=== PATIENT | female | born 1975 | race African-American/Black ===

== ENCOUNTER 2016-07-03 15:13 | Outpatient (CLI) | payer OTHER | END 2016-07-03 15:14 | disposition home or self-care (01) | LOC: HPCALD 15:13 | PROVIDERS: ATTEND Physician Assistant | DX: Z01.419 Encounter for gynecological examination (general) (routine) without abnormal findings (principal) | CPT/HCPCS: 87480; 87491; 87510; 87591; 87660; 88142; G0123 ==

== ENCOUNTER 2018-12-06 02:29 | Emergency (ER) | payer OTHER ==
[2018-12-06] MEDS ORDERED: Ketorolac Tromethamine 60 MG/2 ML VIAL ONE (02:46)
[2018-12-06 02:47] LABS: Bilirubin Negative (Negative); Blood, Urine Negative (Negative); Clarity Hazy (Clear); Glucose, Urine (Dipstick) Negative (Negative); Leukocyte Trace (Negative); Nitrite Negative (Negative); Protein, Urine (Dipstick) Negative (Neg-Trace); Specific Gravity, Urine 1.025 (1.005-1.030); Urobilinogen 0.2 mg/dL (0.2-1.0); pH, Urine 5.5 (5.0-9.0)
[2018-12-06 02:55] LABS: Bacteria/HPF Rare-Few HPF (None Seen); RBC/HPF 0-3 HPF (0-3); Squamous Epithelial 0-3 HPF (0-3); Transitional Epithelial 0-3 HPF (0-3)
[2018-12-06 03:05] LABS: Pregnancy Test - Urine (BHCG) Negative (Negative); Pregu Control Background? CLEAR/WHITE (CLR/WHITE); Pregu Control Bar Appear? YES (CONTROL BAR); Specific Gravity 1.023 (1.002-1.036)
[2018-12-06 03:13] LABS: #Basophils 0.1 thou/uL (0.0-0.2); #Eosinphils 0.3 thou/uL (0.0-0.7); #Lymphocytes 3.1 thou/uL (1.20-3.40); #Monocytes 0.6 thou/uL (0.11-0.59); %Basophils 0.9 % (0.0-1.0); %Eosinophils 3.6 % (0.0-10.0); %Monocytes 8.6 % (0.0-10.0); %Neutrophils 42.9 % (42.0-75.0); Hemoglobin 12.2 g/dL (12.0-16.0); Mean Corpuscular HGB CONC 32.4 g/dL (32.0-36.0); Mean Corpuscular Hemoglobin 27.8 pg (27.0-31.0); Mean Corpuscular Volume 85.6 fL (78.0-98.0); Mean Platelet Volume 7.1 fL (7.4-10.4); Platelet Count 274 thou/uL (130-400); RBC Distribution Width 12.6 % (11.5-14.5); Red Blood Cell (RBC) Count 4.38 mill/uL (4.20-5.40)
[2018-12-06 03:24] LABS: ALT (SGPT) 8 U/L (8-55); AST (SGOT) 14 U/L (5-34); Albumin 3.8 g/dL (3.5-5.0); Alkaline Phosphatase 62 U/L (40-150); Anion Gap 12 mmol/L (10-20); BUN (Urea Nitrogen) 9 mg/dL (7.0-18.7); Bilirubin, Total 0.3 mg/dL (0.2-1.2); Calc. Creatinine Clearance 0 mL/min (70-130); Calcium 9.3 mg/dL (7.8-10.44); Carbon Dioxide 23 mmol/L (22-29); Chloride 106 mmol/L (98-107); Estimated GFR-MDRD Greater than 90; Globulin 3.8 g/dL (2.4-3.5); Glucose 99 mg/dL (70-105); Potassium 3.9 mmol/L (3.5-5.1); Protein, Total 7.6 g/dL (6.0-8.3); Sodium 137 mmol/L (136-145)
--- NOTE | 2018-12-06 08:03 | CT ---
PRELIMINARY REPORT/[facility]/EMERGENCY AFTER HOURS PROCEDURE: EXAM: CT Abdomen and Pelvis With Contrast EXAM DATE/TIME: 12/06/2018 3:02 AM CLINICAL HISTORY: 43 years old, female; Abdominal pain; Right; Patient HX: PT stated started having RT flank pain and r lq abd pain that started yesterday evening. TECHNIQUE: Imaging protocol: Axial computed tomography images of the abdomen and pelvis with intravenous contras t. Coronal and sagittal reformatted images were created and reviewed. Radiation optimization: All CT scans at this facility use at least one of these dose optimization kenzie hniques: automated exposure control; mA and/or kV adjustment per patient size (includes targeted exam s where dose is matched to clinical indication); or iterative reconstruction. Contrast material: ISOVUE 370; Contrast volume: 100 ml; Contrast route: RT AC; COMPARISON: No relevant prior studies available. FINDINGS: Lungs: No consolidations in the lung bases. Liver: No liver masses. Gallbladder and bile ducts: Normal appearance of the gallbladder. No ductal dilation. Pancreas: No pancreatic mass or ductal dilation. Spleen: No splenic masses. Adrenals: No adrenal nodules. Kidneys and ureters: No enhancing mass or hydronephrosis. Stomach and bowel: No evidence of obstruction or bowel wall thickening. Appendix: Normal appendix. Intraperitoneal space: No free air or free fluid. Vasculature: Normal vasculature. Lymph nodes: No lymphadenopathy. Bladder: The bladder is mostly collapsed. Reproductive: Normal appearance of the uterus and adnexa. The uterus is retroverted. Bones/joints: No suspicious bone lesions. Soft tissues: No acute findings. IMPRESSION: 1. No acute findings in the abdomen or pelvis. 2. No evidence of acute appendicitis. Thank you for allowing us to participate in the care of your patient. Dictated and Authenticated by: Mary Grace Martines MD 12/06/2018 4:11 AM Central Time ([place] & [place]) FINAL REPORT CT ABDOMEN AND PELVIS WITH CONTRAST: DATE: 12/06/2018. FINDINGS: Spiral CT of the abdomen and pelvis was done for evaluation of right lower quadrant pain. Axial slic es were acquired followed by coronal and sagittal reconstructions. Comparison was made with the prio r exam dated 06/10/2010. The lung bases are clear. The liver, spleen, pancreas, adrenal glands, gallbladder, kidneys, and abd ominal aorta all appear normal. No acute disease was appreciated. The bowel shows no distention, inflammatory change, or wall thickening. The appendix was identified and appears normal. No free air or free fluid was present. There is no excessive mesenteric adenopa thy. CT of the pelvis was remarkable only for a 2.5 cm cyst in the right adnexal region. There is no subs tantial free fluid. No other pathology was seen in the pelvis. IMPRESSION: 1. A 2.5 cm right ovarian cyst. 2. No evidence of appendicitis or other acute abdominal or pelvic process. Report in agreement with preliminary reading by [facility]. POS: HOME
[2018-12-06] MEDS ORDERED: Iopamidol 370 76% 125 ML VIAL FS ONE (09:00)
== END 2018-12-06 04:28 | disposition home or self-care (01) ==
LOC: BURERS 02:29
DX: R10.9 Unspecified abdominal pain (principal); R10.813 Right lower quadrant abdominal tenderness; Z86.711 Personal history of pulmonary embolism
CPT/HCPCS: 74177; 80053; 81003; 81015; 81025; 85025; 96372; J1885; Q9967

== ENCOUNTER 2019-04-05 05:59 | Emergency (ER) | payer OTHER ==
[2019-04-05] MEDS ORDERED: Aspirin Chewable 81 MG TAB ONE (06:14)
[2019-04-05 06:25] LABS: #Basophils 0.1 thou/uL (0.0-0.2); #Eosinphils 0.1 thou/uL (0.0-0.7); #Lymphocytes 1.9 thou/uL (1.20-3.40); #Monocytes 0.4 thou/uL (0.11-0.59); #Neutrophils 2.6 thou/uL (1.40-6.50); %Basophils 1.7 % (0.0-1.0); %Eosinophils 2.7 % (0.0-10.0); %Lymphocytes 37.4 % (21.0-51.0); %Monocytes 7.4 % (0.0-10.0); %Neutrophils 50.9 % (42.0-75.0); Hemoglobin 11.6 g/dL (12.0-16.0); Mean Corpuscular HGB CONC 32.4 g/dL (32.0-36.0); Mean Corpuscular Hemoglobin 26.9 pg (27.0-31.0); Mean Corpuscular Volume 83.1 fL (78.0-98.0); Mean Platelet Volume 6.9 fL (7.4-10.4); Platelet Count 280 thou/uL (130-400); Red Blood Cell (RBC) Count 4.31 mill/uL (4.20-5.40); White Blood Cell (WBC) Count 5.2 thou/uL (4.8-10.8)
[2019-04-05 06:37] LABS: ALT (SGPT) Less than 7 U/L (8-55); AST (SGOT) 16 U/L (5-34); Albumin 3.6 g/dL (3.5-5.0); Alkaline Phosphatase 60 U/L (40-110); Anion Gap 14 mmol/L (10-20); BUN (Urea Nitrogen) 5 mg/dL (7.0-18.7); Bilirubin, Total 0.3 mg/dL (0.2-1.2); CK (CPK) 92 U/L (29-168); Calc. Creatinine Clearance 0 mL/min (70-130); Calcium 9.1 mg/dL (7.8-10.44); Carbon Dioxide 21 mmol/L (22-29); Chloride 109 mmol/L (98-107); Estimated GFR-MDRD Greater than 90; Globulin 3.7 g/dL (2.4-3.5); Glucose 102 mg/dL (70-105); Potassium 4.3 mmol/L (3.5-5.1); Protein, Total 7.3 g/dL (6.0-8.3); Sodium 140 mmol/L (136-145)
[2019-04-05] MEDS ORDERED: Ketorolac Tromethamine 30 MG/ML VIAL ONE (06:59)
[2019-04-05 07:05] LABS: BHCG - Serum Negative (NEGATIVE); Pregs Control Background? CLEAR/WHITE (CLR/WHITE); Pregs Control Bar Appear? YES (CONTROL BAR)
--- NOTE | 2019-04-05 07:17 | RAD ---
PORTABLE CHEST: Date: 04/05/19 An AP portable film at 0608 hours is presented and is compared with a 01/02/15 study. The heart size is stable. There is no congestion or edema. No pleural effusions are seen. The lungs a re clear. IMPRESSION: Stable exam showing no acute findings. POS: HOME
[2019-04-05] MEDS ORDERED: Iopamidol 370 76% 100 ML VIAL ONE (14:44)
--- NOTE | 2019-04-05 18:03 | CT ---
CT ANGIO OF THE CHEST: 04/05/19 The study was compared against a prior CT of 01/02/15. Axial slices were acquired after a bolus of IV contrast followed by MIP reconstructions in various planes through the pulmonary arteries. There is good opacification of the pulmonary arteries with no filling defects to suggest emboli. The aorta showed no sign of aneurysm or dissection. The heart is mildly enlarged. No pericardial fluid wa s appreciated. It is difficult to see the coronary arteries well but they do appear to fill with cont rast. No mediastinal mass or adenopathy was seen. The lungs are clear. There is some minor pleural scarring in the right apical region. There are no effusions. No pulmonary masses of concern were detected. Scans into the upper abdomen showed a somewhat generous hepatic size. The spleen is normal in size. T he visible portions of the pancreas were unremarkable. No adrenal masses were seen. IMPRESSION: No evidence of pulmonary embolism or acute thoracic findings to explain chest pain. Findings called to Dr. Sanchez at 0740 on 04/05/19. POS: HOME
== END 2019-04-05 07:52 | disposition home or self-care (01) ==
LOC: BURERS 05:59
DX: R07.89 Other chest pain (principal); Z86.711 Personal history of pulmonary embolism
CPT/HCPCS: 71045; 71275; 80053; 82550; 84484; 84703; 85025; 85379; 93005; 96374; J1885; Q9967

== ENCOUNTER 2020-02-19 10:44 | Emergency (ER) | payer OTHER ==
[2020-02-19] MEDS ORDERED: Lidocaine 1% w/Epinephrine 1:100K 20 ML VIAL ONE (10:56)
[2020-02-19] MEDS ORDERED: Sulfameth/Trimethoprim DS 800-160mg TAB ONE (11:22)
[2020-02-19] MEDS ORDERED: Adacel (T-DAP) 0.5 ML SYRINGE ONE (11:22)
== END 2020-02-19 11:29 | disposition home or self-care (01) ==
LOC: BURERS 10:44
DX: S71.111A Laceration without foreign body, right thigh, initial encounter (principal); Z23 Encounter for immunization; W55.32XA Struck by other hoof stock, initial encounter
CPT/HCPCS: 12001; 90471; 90715

== ENCOUNTER 2020-07-22 21:47 | Emergency (ER) | payer OTHER ==
[2020-07-22] MEDS ORDERED: Benzonatate 100 MG CAP ONE (22:33)
--- NOTE | 2020-07-23 07:52 | RAD ---
PORTABLE CHEST: DATE: 07/22/2020. FINDINGS: An AP portable film at 2243 is compared with a 04/05/2019 study. Mild cardiomegaly is present. There is no congestion of the vessels or large pleural effusions. No definite focal infiltrates were detected. The bony structures were unremarkable. IMPRESSION: Mild cardiomegaly, but no definite pulmonary findings. POS: HOME
== END 2020-07-23 | disposition home or self-care (01) ==
LOC: BURERS 21:47
DX: J02.9 Acute pharyngitis, unspecified (principal)
CPT/HCPCS: 71045; 87081; 87430; 87804; J7620

== ENCOUNTER 2021-10-31 05:42 | Emergency (ER) | payer OTHER ==
[2021-10-31] MEDS ORDERED: Bupivacaine 0.5% 10 ML VIAL ONE (06:18)
[2021-10-31] MEDS ORDERED: traMADol HCl 50 MG TAB ONE (06:32)
== END 2021-10-31 06:40 | disposition home or self-care (01) ==
LOC: BURERS 05:42
DX: M62.830 Muscle spasm of back (principal)
CPT/HCPCS: 20552; J3490

== ENCOUNTER 2021-12-31 08:16 | Emergency (ER) | payer OTHER ==
[2021-12-31] MEDS ORDERED: Ketorolac Tromethamine 30 MG/ML VIAL ONE (08:37)
== END 2021-12-31 08:47 | disposition home or self-care (01) ==
LOC: BURERS 08:16
DX: G62.9 Polyneuropathy, unspecified (principal); M62.838 Other muscle spasm
CPT/HCPCS: J1885

== ENCOUNTER 2022-01-20 14:11 | Emergency (ER) | payer OTHER | END 2022-01-20 15:07 | disposition home or self-care (01) | LOC: BURERS 14:11 | DX: S93.401A Sprain of unspecified ligament of right ankle, initial encounter (principal); X50.1XXA Overexertion from prolonged static or awkward postures, initial encounter ==

== ENCOUNTER 2022-07-10 17:04 | Emergency (ER) | payer OTHER ==
[2022-07-10] MEDS ORDERED: Ketorolac Tromethamine 30 MG/ML VIAL ONE (17:17)
[2022-07-10 17:23] LABS: #Basophils 0.1 thou/uL (0.0-0.2); #Eosinphils 0.1 thou/uL (0.0-0.7); #Monocytes 0.5 thou/uL (0.11-0.59); %Basophils 1.2 % (0.0-1.0); %Eosinophils 1.6 % (0.0-10.0); %Lymphocytes 44.4 % (21.0-51.0); %Neutrophils 44.8 % (42.0-75.0); Hemoglobin 12.5 g/dL (12.0-16.0); Mean Corpuscular HGB CONC 31.7 g/dL (32.0-36.0); Mean Corpuscular Hemoglobin 26.3 pg (27.0-31.0); Mean Corpuscular Volume 83.1 fl (78.0-98.0); Mean Platelet Volume 7.4 fL (7.4-10.4); Platelet Count 339 10x3/uL (130-400); RBC Distribution Width 15.2 % (11.5-14.5); Red Blood Cell (RBC) Count 4.74 mill/uL (4.20-5.40); White Blood Cell (WBC) Count 6.7 10x3/uL (4.8-10.8)
[2022-07-10 17:26] LABS: Bilirubin Negative (Negative); Blood, Urine Negative (Negative); Clarity Cloudy (Clear); Glucose, Urine (Dipstick) Negative (Negative); Ketone, Urine Negative (Negative); Leukocyte Negative (Negative); Nitrite Negative (Negative); Pregnancy Test - Urine (BHCG) Negative (Negative); Pregu Control Background? CLEAR/WHITE (CLR/WHITE); Pregu Control Bar Appear? YES (CONTROL BAR); Protein, Urine (Dipstick) Negative (Neg-Trace); Specific Gravity 1.025 (1.002-1.036); Specific Gravity, Urine 1.025 (1.005-1.030)
[2022-07-10 17:39] LABS: Amphetamine Not Detected (NotDetected); Barbiturates Screen Not Detected (NotDetected); Benzodiazepine Screen Not Detected (NotDetected); Cocaine Metabolite Screen Not Detected (NotDetected); Medtox Control Line Valid? VALID (VALID); Methadone Not Detected (NotDetected); Methamphetamine Not Detected (NotDetected); Opiate Screen Not Detected (NotDetected); Oxycodone Screen Not Detected (NotDetected); Phencyclidine (PCP) Not Detected (NotDetected); THC/Cannabinoid Screen Not Detected (NotDetected); Tricyclic Screen Not Detected (NotDetected)
[2022-07-10 17:42] LABS: ALT (SGPT) 7 U/L (8-55); AST (SGOT) 16 U/L (5-34); Alkaline Phosphatase 64 U/L (40-110); Anion Gap 11 mmol/L (10-20); BUN (Urea Nitrogen) 12 mg/dL (7.0-18.7); Bilirubin, Total Less than 0.2 mg/dL (0.2-1.2); Calc. Creatinine Clearance 0 mL/min (70-130); Calcium 9.2 mg/dL (7.8-10.44); Carbon Dioxide 25 mmol/L (22-29); Chloride 107 mmol/L (98-107); Estimated GFR 94; Globulin 3.9 g/dL (2.4-3.5); Glucose 107 mg/dL (70-105); Lipase 41 U/L (8-78); Magnesium 2.2 mg/dL (1.6-2.6); Potassium 3.9 mmol/L (3.5-5.1); Protein, Total 7.9 g/dL (6.0-8.3); Sodium 139 mmol/L (136-145)
== END 2022-07-10 18:21 | disposition home or self-care (01) ==
LOC: BURERS 17:04
DX: N83.201 Unspecified ovarian cyst, right side (principal)
CPT/HCPCS: 74177; 80053; 80306; 81003; 81025; 83690; 83735; 85025; 96374; J1885

== ENCOUNTER 2022-08-13 05:36 | Emergency (ER) | payer OTHER ==
[2022-08-13] MEDS ORDERED: Ketorolac Tromethamine 30 MG/ML VIAL ONE (06:03)
[2022-08-13] MEDS ORDERED: predniSONE 20 MG TAB ONE (06:03)
== END 2022-08-13 06:05 | disposition home or self-care (01) ==
LOC: BURERS 05:36
DX: B34.9 Viral infection, unspecified (principal); I10 Essential (primary) hypertension; Z79.899 Other long term (current) drug therapy
CPT/HCPCS: 96372; 99283; J1885; J7512

== ENCOUNTER 2022-08-31 16:01 | Emergency (ER) | payer OTHER ==
[2022-08-31] MEDS ORDERED: Tetracaine 0.5% PF 4 ML BOT ONE (16:18)
[2022-08-31] MEDS ORDERED: Fluorescein Opthalmic Strip ONE (16:18)
== END 2022-08-31 17:19 | disposition home or self-care (01) ==
LOC: BURERS 16:01
DX: H20.00 Unspecified acute and subacute iridocyclitis (principal); I10 Essential (primary) hypertension
CPT/HCPCS: 99283

== ENCOUNTER 2023-03-04 08:57 | Emergency (ER) | payer OTHER ==
[2023-03-04] MEDS ORDERED: Ketorolac Tromethamine 30 MG/ML VIAL ONE (09:09)
[2023-03-04] MEDS ORDERED: Dexamethasone 10 MG/ML VIAL ONE (09:24)
[2023-03-04] MEDS ORDERED: Metoclopramide HCl 10 MG/2 ML VIAL ONE (09:24)
[2023-03-04] MEDS ORDERED: diphenhydrAMINE 50 MG/ML VIAL ONE (09:24)
== END 2023-03-04 10:07 | disposition home or self-care (01) ==
LOC: BURERS 08:57
DX: R51.9 Headache, unspecified (principal); I10 Essential (primary) hypertension
CPT/HCPCS: 96374; 96375; J1100; J1200; J1885; J2765

== ENCOUNTER 2023-06-20 06:22 | Emergency (ER) | payer OTHER | END 2023-06-20 07:02 | disposition home or self-care (01) | LOC: BURERS 06:22 | DX: J06.9 Acute upper respiratory infection, unspecified (principal); I10 Essential (primary) hypertension | CPT/HCPCS: 99283 ==

== ENCOUNTER 2025-05-20 08:14 | Emergency (ER) | payer SELFPAY ==
[2025-05-20] MEDS ORDERED: Benzonatate 100 MG CAP ONE (09:11)
[2025-05-20] MEDS ORDERED: Ibuprofen 800 MG TAB ONE (09:11)
== END 2025-05-20 09:28 | disposition home or self-care (01) ==
LOC: BURERS 08:14
DX: J20.9 Acute bronchitis, unspecified (principal); I10 Essential (primary) hypertension; F17.290 Nicotine dependence, other tobacco product, uncomplicated
CPT/HCPCS: 71046; 87428